=== PATIENT | female | born 1995 | race Caucasian/White ===

== ENCOUNTER 2017-11-15 09:31 | Emergency (ER) | payer MEDICAID ==
[2016-03-27 05:44] VITALS: BMI 27.7
[~2017-11-15 09:31] MED LIST: HYDROCODONE-APA1 TAB PO; IBUPROFEN600 MG PO; PRENATAL COMPLE1 TAB PO
== END 2017-11-15 11:25 | disposition home or self-care (01) ==
LOC: D.ER 09:31
DX: S61.511A Laceration without foreign body of right wrist, initial encounter (principal); W25.XXXA Contact with sharp glass, initial encounter; Y93.89 Activity, other specified; Y92.019 Unspecified place in single-family (private) house as the place of occurrence of the external cause; F17.200 Nicotine dependence, unspecified, uncomplicated

== ENCOUNTER 2018-04-14 15:06 | Emergency (ER) | payer MEDICAID ==
[~2018-04-14] VITALS: Ht 152.4 cm; Wt 47.7 kg
[2018-04-14 15:23] VITALS: BP 109/57; Ht 152.4 cm; Wt 47.7 kg
== END 2018-04-14 17:17 | disposition home or self-care (01) ==
LOC: D.ER 15:06
DX: S60.222A Contusion of left hand, initial encounter (principal); W45.0XXA Nail entering through skin, initial encounter; Y93.89 Activity, other specified; Y92.019 Unspecified place in single-family (private) house as the place of occurrence of the external cause; S61.213A Laceration without foreign body of left middle finger without damage to nail, initial encounter; F17.200 Nicotine dependence, unspecified, uncomplicated

== ENCOUNTER 2018-07-14 17:54 | Emergency (ER) | payer MEDICAID ==
[~2018-07-14] VITALS: Ht 152.4 cm; Wt 45.4 kg
[2018-07-14 17:58] VITALS: Ht 152.4 cm; Wt 45.4 kg
[2018-07-14 20:34] VITALS: BP 121/74
== END 2018-07-14 20:35 | disposition home or self-care (01) ==
LOC: D.ER 17:54
DX: S42.021A Displaced fracture of shaft of right clavicle, initial encounter for closed fracture (principal); Y04.2XXA Assault by strike against or bumped into by another person, initial encounter; Y93.89 Activity, other specified; Y92.019 Unspecified place in single-family (private) house as the place of occurrence of the external cause; F17.200 Nicotine dependence, unspecified, uncomplicated

== ENCOUNTER 2018-08-08 23:05 | Emergency (ER) | payer MEDICAID ==
[~2018-08-08] VITALS: Ht 152.4 cm; Wt 50.0 kg
[2018-08-08 23:12] VITALS: Ht 152.4 cm; Wt 50.0 kg
[2018-08-08] MEDS ORDERED: TORADOL10 MG PO (23:54)
[2018-08-09 00:03] VITALS: BP 132/78
== END 2018-08-09 00:05 | disposition home or self-care (01) ==
LOC: D.ER 23:05
DX: S42.001A Fracture of unspecified part of right clavicle, initial encounter for closed fracture (principal); X58.XXXA Exposure to other specified factors, initial encounter; Y93.89 Activity, other specified; Y92.89 Other specified places as the place of occurrence of the external cause; F17.200 Nicotine dependence, unspecified, uncomplicated

== ENCOUNTER 2021-01-02 22:39 | Emergency (ER) | payer MEDICAID ==
[~2021-01-02] VITALS: Ht 152.4 cm; Wt 55.5 kg
[~2021-01-02 22:39] MED LIST changes: +TORADOL10 MG PO
[2021-01-02 22:55] VITALS: Ht 152.4 cm; Wt 55.5 kg
[2021-01-02] MEDS ORDERED: GABAPENTIN300 MG PO (23:05)
[2021-01-02] MEDS ORDERED: MOBIC7.5 MG PO (23:05)
[2021-01-02] MEDS ORDERED: PROZAC10 MG PO (23:06)
[2021-01-02] MEDS ORDERED: HYDROXYZINE HCL10 MG PO (23:06)
[2021-01-02] MEDS ORDERED: AUGMENTIN 875-11 TAB PO (23:36)
[2021-01-02] MEDS ORDERED: MEDROL DOSE PACK4 MG PO (23:36)
[2021-01-02] MEDS ORDERED: CLARITIN 10 MG10 MG PO (23:36)
[2021-01-02 23:53] VITALS: BP 112/70
== END 2021-01-02 23:53 | disposition home or self-care (01) ==
LOC: D.ER 22:39
DX: J32.9 Chronic sinusitis, unspecified (principal); Z72.0 Tobacco use; R04.2 Hemoptysis

== ENCOUNTER 2021-01-03 08:45 | Inpatient (IN) | payer MEDICAID ==
[~2021-01-03] VITALS: Ht 152.4 cm; Wt 56.9 kg
--- NOTE | ~2021-01-03 | EC ---
PATIENT:MEAGAN CHAVARRIA DATE OF SERVICE: 01/03/21 SEX: F MEDICAL RECORD: [id number] DATE OF : [birth year] LOCATION:[facility] AGE OF PATIENT: 25 ADMISSION DATE: 01/03/21 REFERRING PHYSICIAN: INTERPRETING PHYSICIAN: GERI RODRIGUEZ MD ECHOCARDIOGRAM REPORT ECHO CHARGES 4 ECHO COMPLETE Date: 01/05/21 CLINICAL DIAGNOSIS: BILATERAL PE'S, CHEST PAIN ECHOCARDIOGRAPHIC MEASUREMENTS (adult normal given) AC root (d.<3.7cm) 2.5 cm LV Septum d (<1.2 cm> 0.8 cm Valve Excursion 1.2 cm LV Septum (systole) 0.9 cm Left Atria (s.<4.0cm> 2.9 cm LVPW d(<1.2cm) 0.9 cm RV (d.<2.3cm) 2.7 cm LVPW (sytole) 1.4 cm LV diastole(<5.6CM) 4.0 cm MV E-F(>70mm/sec) cm LV systole 2.7 cm LVOT Diameter 1.9 cm MV exc.(>10mm) 1.6 cm Est.ejection fraction (50-75%) % DOPPLER: LVIT cm/sec A 67.0 cm/sec E 111.0 cm/sec LA cm/sec RVSP 37 mmHg LVOT 116 cm/sec AOP1/2T m/s Asc. Ao 137 cm/sec RVOT 55 cm/sec RA cm/sec PA 111 cm/sec AV Gradient Peak 7.51 mmHg AV Mean 3.73 mmHg AV Area 2.8 cm MV Gradient Peak 6.63 mmHg MV Mean 2.95 mmHg MV Area cm COMMENTS: Warehouse Consultant: 2 GERMÁN HERNANDEZ Aerophysics Engineer: 5 Dr. Rodriguez TAPE# PACS Pericardial Effusion N DATE OF SERVICE: INTERPRETATION: Normal left ventricular chamber size and contractile function with ejection fraction of 60%. Right atrium and right ventricular chamber size and function appears normal. Left atrial chamber appears normal. Aortic valve appears normal. No aortic stenosis/regurgitation noted. Mitral valve appears normal. Trace mitral regurgitation. Tricuspid valve appears normal. Trace tricuspid regurgitation. Pulmonic valve appears normal. No pulmonary insufficiency. No pericardial effusion visualized. ECHOCARDIOGRAM REPORT [id number] MEAGAN CHAVARRIA IMPRESSION: Normal left ventricular chamber size and contractile function with an ejection fraction of 60%. TRANSINT:[id number] Voice Confirmation ID: [id number] DOCUMENT ID: [id number] GERI RODRIGUEZ MD CC: [id number] DICTATION DATE: 01/05/21 144 FIREARMS SPECIALIST: 01/05/21 1657 ADM IN [facility] [address] [id number]
[~2021-01-03 08:45] MED LIST changes: +AUGMENTIN 875-11 TAB PO; +CLARITIN 10 MG10 MG PO; +GABAPENTIN300 MG PO; +HYDROXYZINE HCL10 MG PO; +MEDROL DOSE PACK4 MG PO; +MOBIC7.5 MG PO; +PROZAC10 MG PO
--- NOTE | 2021-01-03 09:05 | NUR ---
PATIENT IS SCREAMING AND CRYING IN WAITING ROOM AND TRIAGE, STAFF ATTEMPTED TO CALM HER, PATIENT UNCOOPERATIVE. TRIAGE NURSE ATTEMPTING TO ASSESS. CARDIAC AND RESPIRATORY WNL.
[2021-01-03 09:38] LABS: CALC OSMOLALITY 270 mosm/kg (275-300); CALCIUM 8.9 mg/dL (8.5-10.1); CARBON DIOXIDE 27.1 mmol/L (21.0-32.0); CHLORIDE - SERUM 100 mmol/L (98-107); CREATININE - SERUM 0.7 mg/dL (0.6-1.3); GLUCOSE 109 mg/dL (74-106); POTASSIUM - SERUM 3.6 mmol/L (3.5-5.1); SODIUM 135 mmol/L (136-145); UREA NITROGEN 12 mg/dL (7-18); eGFR NON AFRICAN AMERICAN > 90 mL/min (90-120)
--- NOTE | 2021-01-03 09:45 | NUR ---
PATIENT GIVEN WARM BLANKET. NO LONGER ANXIOUS, REPORTS FEELING BETTER.
[2021-01-03 09:47] LABS: BASOPHILS 0.1 % (0-2); EOSINOPHILS 3.3 % (0-7); HEMATOCRIT 41.6 % (36.0-48.0); HEMOGLOBIN 14.3 g/dL (12-16); IMMATURE GRANULOCYTES 0.2 % (0-5); LYMPHOCYTE ABS# 2.09 10x3/uL (1.18-3.74); MCH 29.9 pg (26.0-34.0); MCHC 34.4 g/dL (31.0-37.0); MEAN PLATELET VOLUME 9.2 fL (7.4-10.4); MONOCYTES 9.9 % (2-11); NEUTROPHIL ABS# 7.94 10x3/uL (1.56-6.13); NEUTROPHILS 68.5 % (40-80); PLATELET COUNT 207 10x3/uL (130-400); RBC 4.78 10x6/uL (4.00-5.40); RDW 13.1 % (11.5-14.5); WBC 11.6 10x3/uL (4.8-10.8)
[2021-01-03 10:02] LABS: ALBUMIN 3.7 g/dL (3.4-5.0); ALKALINE PHOSPHATASE 81 U/L (30-120); ALT (SGPT) 34 U/L (10-68); BILIRUBIN - TOTAL 0.46 mg/dL (0.2-1.3); CREATINE KINASE 353 UL (21-215); PROTEIN - SERUM 7.5 g/dL (6.4-8.2)
[2021-01-03 10:03] LABS: CKMB 0.1 U/L (0.0-3.6)
[2021-01-03 10:31] LABS: HCG SERUM NEGATIVE (NEGATIVE)
[2021-01-03 11:10] VITALS: BP 111/70
--- NOTE | 2021-01-03 11:11 | NUR ---
PATIENT ASSISTED TO BATHROOM FOR CLEAN CATCH URINE SAMPLE.
--- NOTE | 2021-01-03 11:25 | NUR ---
8F STRAIGHT CATH USED TO OBTAIN URINE PER PROTOCOL. SENT TO LAB.
[2021-01-03 11:37] LABS: UDS - AMPHET NEGATIVE QUAL (NEGATIVE); UDS - BARB NEGATIVE QUAL (NEGATIVE); UDS - BENZO NEGATIVE QUAL (NEGATIVE); UDS - COCAINE NEGATIVE QUAL (NEGATIVE); UDS - OPIATE NEGATIVE QUAL (NEGATIVE); UDS - PCP NEGATIVE QUAL (NEGATIVE); UDS - THC POSITIVE QUAL (NEGATIVE)
--- NOTE | 2021-01-03 11:43 | NUR ---
60MG LOVENOX UNAVAILABLE. 80MG LOVENOX PULLED, 20MG WASTED FROM SYRINGE TO GIVE CORRECT DOSE.
[2021-01-03 11:47] LABS: BILIRUBIN NEGATIVE (NEGATIVE); KETONE SMALL mg/dL (NEGATIVE); NITRITE NEGATIVE (NEGATIVE)
[2021-01-03 13:00] VITALS: BP 120/73
--- NOTE | 2021-01-03 13:34 | NUR ---
REPORT CALLED TO CHARISSE MOORE ON MED SURG.
[2021-01-03 14:36] VITALS: BP 98/56; BMI 23.3
[2021-01-03 17:35] VITALS: BP 112/54
[2021-01-03 21:49] VITALS: BP 98/45
--- NOTE | 2021-01-03 23:30 | NUR ---
SUPINE IN BED, A&O X 4. REPORTS CRAMPING TO LEFT SIDE. REPORTS OF BLOODY SPUTUM. SMALL ABOUNT OF PINK/RED TINGED SPIT IN CUP. WARM PACK PER REQUEST. NO FURTHER NEEDS VOICED, CTM.
--- NOTE | 2021-01-03 23:31 | NUR ---
I have reviewed this patient and I concur with the Shift Assessment completed by the Licensed Practical Nurse today this shift.
[2021-01-04 00:05] VITALS: BP 131/62
[2021-01-04 04:39] LABS: BASOPHILS 0.1 % (0-2); EOSINOPHILS 4.4 % (0-7); HEMATOCRIT 38.4 % (36.0-48.0); HEMOGLOBIN 12.8 g/dL (12-16); IMMATURE GRANULOCYTES 0.2 % (0-5); LYMPHOCYTE ABS# 2.27 10x3/uL (1.18-3.74); LYMPHOCYTES 25.6 % (15-50); MCH 29.4 pg (26.0-34.0); MCHC 33.3 g/dL (31.0-37.0); MCV 88.3 fL (80.0-100.0); MEAN PLATELET VOLUME 9.2 fL (7.4-10.4); MONOCYTES 11.6 % (2-11); NEUTROPHIL ABS# 5.15 10x3/uL (1.56-6.13); NEUTROPHILS 58.1 % (40-80); PLATELET COUNT 189 10x3/uL (130-400); RBC 4.35 10x6/uL (4.00-5.40); RDW 13.4 % (11.5-14.5); WBC 8.9 10x3/uL (4.8-10.8)
[2021-01-04 04:48] LABS: CALC OSMOLALITY 270 mosm/kg (275-300); CALCIUM 8.5 mg/dL (8.5-10.1); CARBON DIOXIDE 28.5 mmol/L (21.0-32.0); CHLORIDE - SERUM 102 mmol/L (98-107); CREATININE - SERUM 0.7 mg/dL (0.6-1.3); GLUCOSE 77 mg/dL (74-106); MAGNESIUM - SERUM 2.3 mg/dL (1.8-2.4); PHOSPHOROUS 4.1 mg/dL (2.5-4.9); SODIUM 135 mmol/L (136-145); eGFR NON AFRICAN AMERICAN > 90 mL/min (90-120)
[2021-01-04 04:49] LABS: UREA NITROGEN 18 mg/dL (7-18)
[2021-01-04 04:59] VITALS: BP 100/44
--- NOTE | 2021-01-04 08:02 | NUR ---
RESTING IN BED, NO DISTRESS NOTED, SL IN PLACE, C/O PAIN TO L CHEST AND SIDE
[2021-01-04 08:54] VITALS: BP 98/50
[2021-01-04 12:08] VITALS: Ht 152.4 cm; Wt 56.9 kg
[2021-01-04 14:48] VITALS: BP 106/63
[2021-01-04 17:51] VITALS: BP 109/68
--- NOTE | 2021-01-04 20:15 | NUR ---
PATIENT RESTING IN BED WITH NO S/S OF DISTRESS. PATIENT DENIES NEEDS AT THIS TIME. BED IN LOWEST POSITION AND CALL LIGHT IN REACH. ENCOURAGED PATIENT TO CALL WITH NEEDS.
[2021-01-04 20:43] VITALS: BP 111/66
--- NOTE | 2021-01-04 20:44 | NUR ---
ADMINISTERED MEDS PER ORDERS. PATIENT TARA WELL. ENCOURAGED TO CALL WITH NEEDS.
--- NOTE | 2021-01-04 22:35 | HP ---
PATIENT: MEAGAN CHAVARRIA MEDICAL RECORD: [id number] ACCOUNT: [id number] LOCATION:D.[facility] : [birth year] ADMISSION DATE: 01/03/21 PCP: TAYA CHILDS HISTORY AND PHYSICAL EXAMINATION DATE OF ADMISSION: 01/03/2021 CHIEF COMPLAINT: Pain with breathing "cramping everywhere." HISTORY OF PRESENT ILLNESS: This is a 25-year-old female whose primary care provider is a nurse practitioner with [facility]. She came to [place] [facility] on 01/02/2021 and was diagnosed with sinusitis. She came back on 01/03/2021 complaining of pain with breathing, worse on the left side and "cramping everywhere," screaming loudly in the Emergency Department. Urine drug screen was positive for marijuana. D-dimer was elevated at 3.19. CT angiogram of the chest with PE protocol showed bilateral pulmonary emboli and peripheral consolidation in the left lower lobe consistent with pulmonary infarct, less likely pneumonia. She is admitted. The patient has no personal history of blood clots. No known family history of blood clot. She is not on estrogen. She has not had any major surgery recently. PAST MEDICAL HISTORY: Significant for depression, anxiety, posttraumatic stress disorder. PAST SURGICAL HISTORY: ORIF of right shoulder/clavicle by Dr. Carvajal at [facility] in August of 2018. She had Mirena placed, which has no estrogen. HOME MEDICATIONS: Gabapentin 300 mg t.i.d., meloxicam 7.5 mg once or twice a day, Atarax 10 mg p.o. every 4 hours p.r.n. anxiety, Prozac 10 mg once a day. ALLERGIES: No known drug allergies. FAMILY HISTORY: Reportedly, the hypertension. SOCIAL HISTORY: Unemployed. She has a child that is in foster care at this point. HABITS: She smokes cigarettes. She smokes marijuana. 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 REVIEW OF SYSTEMS: GENERAL: No major weight changes. HEENT: No particular sinus or allergy problems. RESPIRATORY: No history of asthma or pneumonia. CARDIAC: No history of heart disease. GASTROINTESTINAL: No known diarrhea, constipation, or heartburn. GENITOURINARY: No significant problems there. She does not have periods due to the Mirena. MUSCULOSKELETAL: She has had some chronic pain around her right clavicle/shoulder area. NEUROLOGIC: No migraines or seizures. PSYCHIATRIC: Depression/anxiety and possible posttraumatic stress disorder. PHYSICAL EXAMINATION: VITAL SIGNS: Temperature 97.7, heart rate 60, respirations 18, blood pressure HISTORY AND PHYSICAL [id number] MEAGAN CHAVARRIA 112/54, O2 sat 98%. GENERAL: She is lying comfortably in hospital bed room 2223, awake and alert, in no acute distress. SKIN: Warm and dry. HEENT: Grossly within normal limits. NECK: Supple. No JVD or bruit. HEART: Regular rate and rhythm. LUNGS: Clear. No wheeze, no rales. ABDOMEN: Soft, flat, nontender. EXTREMITIES: There is no edema anywhere. LABORATORY AND DIAGNOSTIC DATA: Urinalysis is normal. Urine drug screen positive for THC. CBC with a white count of 11,600, hemoglobin 14.3, hematocrit 41.6. Sodium 135, potassium 3.6, chloride 100, CO2 27.1, BUN 12, creatinine 0.7, glucose 109, calcium 8.9. Liver functions are all normal. D-dimer elevated at 3.19. CK elevated at 353. Serum hemoglobin is negative. CT angiogram of the chest with PE protocol shows positive for bilateral pulmonary emboli and peripheral consolidation in the left lower lobe, likely representing a pulmonary infarct, less likely pneumonia. ASSESSMENT: 1. Bilateral pulmonary emboli. 2. Atypical chest pain. 3. History of marijuana use. 4. History of IV methamphetamine use. PLAN: She is admitted, started on Lovenox. We will order bilateral venous Doppler ultrasound of the lower extremities. We will ask pulmonary to see about her pulmonary emboli. Other tests or procedures as warranted. TRANSINT:[id number] Voice Confirmation ID: [id number] DOCUMENT ID: [id number] CANDIDO ANDERSON MD at 2235 CC: [id number] DICTATION DATE: 01/04/21 1304 DRIVER/MERCHANDISER: 01/04/21 1339 ADM IN [id number] [place] [address]
--- NOTE | 2021-01-05 04:21 | NUR ---
PATIENT REFUSED MORNING VITALS
[2021-01-05 09:27] VITALS: BP 108/52
--- NOTE | 2021-01-05 11:44 | NUR ---
RESTING IN BED, NO DISTRESS NOTED, SL IN PLACE, TAKING PO MEDS [facility] EASE
[2021-01-05 15:22] VITALS: BP 108/50
[2021-01-05 18:00] VITALS: BP 122/63
--- NOTE | 2021-01-05 19:32 | NUR ---
PATIENT RESTING IN BED WITH NO S/S OF DISTRESS. PATIENT REQUESTED TORADOL WHEN AVAILABLE AND DENIES OTHER NEEDS AT THIS TIME. BED IN LOWEST POSITION AND CALL LIGHT IN REACH. ENCOURAGED PATIENT TO CALL WITH NEEDS.
--- NOTE | 2021-01-05 21:10 | NUR ---
ADMINISTERED MEDS PER ORDERS. PATIENT TARA WELL. ENCOURAGED TO CALL WITH NEEDS.
[2021-01-05 23:02] VITALS: BP 108/75
--- NOTE | 2021-01-06 08:00 | NUR ---
LYING IN BED,WITHOUT DISTRESS
[2021-01-06 08:35] VITALS: BP 110/51
[2021-01-06] MEDS ORDERED: XARELTO15 MG PO (08:39)
[2021-01-06] MEDS ORDERED: TORADOL10 MG PO (08:41)
--- NOTE | 2021-01-06 11:38 | MORECARE ---
CASE MANAGEMENT DISCHARGE SUMMARY PATIENT: MEAGAN CHAVARRIA UNIT: [id number] ADM DATE: 01/03/21 AGE: 25 : [birth year] SEX: F ROOM/BED: D.2223 AUTHOR: ANDREA CHAU PHYSICIAN: REFERRING PHYSICIAN: CANDIDO ANDERSON MD DATE OF SERVICE: 01/06/21 Discharge Plan Patient Name: MEAGAN CHAVARRIA Facility: [facility]:[place] : 1995 Planned Disposition: Anticipated Discharge Date: Discharge Date: Expected LOS: Initial Reviewer: [email or web address] Initial Review Date: 01/03/2021 Generated: 01/06/21 12:37 pm Comments DCP- Discharge Planning Updated by [email or web address]: Mari Mendoza on 01/06/21 10:[address] Patient Name: MEAGAN CHAVARRIA Admission Status: ER Accout number: [id number] Admission Date: 01-03-2021 : 1995 Admission Diagnosis: Attending: CANDIDO ANDERSON Current LOS: 3 Anticipated DC Date: Planned Disposition: Primary Insurance: MEDICAID [place] Discharge Planning Comments: PATIENT GIVEN 30 DAY FREE CARD FOR XARELTO. THIS SHOULD GET HER THROUGH UNTIL HER FOLLOW UP WITH HER PCP. CM TO FOLLOW AND ASSIST NEEDED. Refinery Operator Helper: Mari Mendoza DCPIA - Discharge Planning Initial Assessment Updated by [email or web address]: Mari Mendoza on 01/06/21 11:34 am * Is the patient Alert and Oriented? Yes * PCP NAZ * Pharmacy [facility] * Preadmission Environment Home with Family * ADLs Independent * Equipment None * Community resources currently utilized None * Additional services required to return to the preadmission environment? No * Can the patient safely return to the preadmission environment? Yes * Has this patient been hospitalized within the prior 30 days at any hospital? No Patient Name: MEAGAN CHAVARRIA Page [id number] at 1138 All edits/amendments must be made on the electronic document DICTATION DATE: 01/06/21 1137 STOCK BUYER: BANDAR 01/06/21 1137 RPT#: [id number] DC DATE: STATUS: ADM IN [address] [id number] [place] [address] END OF REPORT
[2021-01-07 08:13] LABS: HAPTOGLOBIN 159 mg/dL (33-278)
--- NOTE | 2021-01-07 10:25 | MORECARE ---
CASE MANAGEMENT DISCHARGE SUMMARY PATIENT: MEAGAN CHAVARRIA UNIT: [id number] ADM DATE: 01/03/21 AGE: 25 : [birth year] SEX: F ROOM/BED: D.2223 AUTHOR: ANDREA CHAU PHYSICIAN: REFERRING PHYSICIAN: CANDIDO ANDERSON MD DATE OF SERVICE: 01/07/21 Discharge Plan Patient Name: MEAGAN CHAVARRIA Facility: [facility]:[place] : 1995 Planned Disposition: Anticipated Discharge Date: Discharge Date: 01/06/2021 Expected LOS: Initial Reviewer: [email or web address] Initial Review Date: 01/03/2021 Generated: 01/07/21 11:24 am Comments DCP- Discharge Planning Updated by [email or web address]: Mari Mendoza on 01/06/21 10:[address] Patient Name: MEAGAN CHAVARRIA Admission Status: ER Accout number: [id number] Admission Date: 01-03-2021 : 1995 Admission Diagnosis: Attending: CANDIDO ANDERSON Current LOS: 3 Anticipated DC Date: Planned Disposition: Primary Insurance: MEDICAID [place] Discharge Planning Comments: PATIENT GIVEN 30 DAY FREE CARD FOR XARELTO. THIS SHOULD GET HER THROUGH UNTIL HER FOLLOW UP WITH HER PCP. CM TO FOLLOW AND ASSIST NEEDED. Technical Producer: Mari Mendoza DCPIA - Discharge Planning Initial Assessment Updated by [email or web address]: Mari Mendoza on 01/06/21 11:34 am * Is the patient Alert and Oriented? Yes * PCP NAZ * Pharmacy [facility] * Preadmission Environment Home with Family * ADLs Independent * Equipment None * Community resources currently utilized None * Additional services required to return to the preadmission environment? No * Can the patient safely return to the preadmission environment? Yes * Has this patient been hospitalized within the prior 30 days at any hospital? No Last DP export: 01/06/21 10:38 am Patient Name: MEAGAN CHAVARRIA Page [phone] at 1025 All edits/amendments must be made on the electronic document DICTATION DATE: 01/07/21 1024 MAT CUTTER: BANDAR 01/07/21 1024 RPT#: [id number] DC DATE:01/06/21 STATUS: DIS IN [facility] [address] [facility] [place] [address] END OF REPORT
[2021-01-07 11:11] LABS: ACLA - IGG AB <9 GPL U/mL (0-14); ACLA - IGM AB 16 MPL U/mL (0-12)
== END 2021-01-06 12:36 | disposition home or self-care (01) | DRG 176 ==
LOC: D.ER 08:45 → D.EDHOLD 12:38 → D.MS 12:38
PROVIDERS: Family Medicine; Internal Medicine Pulmonary Disease; ADMIT Family Medicine; ATTEND Family Medicine
DX: I26.99 Other pulmonary embolism without acute cor pulmonale (principal); R07.89 Other chest pain; F12.90 Cannabis use, unspecified, uncomplicated; R09.1 Pleurisy; F17.200 Nicotine dependence, unspecified, uncomplicated; D64.9 Anemia, unspecified; J32.9 Chronic sinusitis, unspecified